=== PATIENT | female | born 1985 | race Hispanic/Latino ===

== ENCOUNTER 2019-07-30 05:38 | Inpatient (IN) | payer OTHER ==
[~2019-07-30] VITALS: Ht 162.6 cm; Wt 115.2 kg
[2019-07-30] MEDS ORDERED: EPHEDRINE SULFATE 50 MG/ML AMPULE IVP PRN (06:00)
[2019-07-30] MEDS ORDERED: OXYTOCIN 10 USP UNITS/ML 20 UNIT in LACTATED RINGERS 1000ML 1,000 ML IV SCH (06:00)
[2019-07-30] MEDS ORDERED: LACTATED RINGERS 500 ML 500 ML IV PRN (06:00)
[2019-07-30] MEDS ORDERED: ROPIVACAINE 0.2% 100ML VIAL 100 ML EP PRN (06:00)
[2019-07-30] MEDS ORDERED: NALOXONE HCL 0.4 MG/1 ML ML IV PRN (06:00)
[2019-07-30 06:30] LABS: APPEARANCE,URINE Cloudy (CLEAR); BILIRUBIN,URINE Negative (NEGATIVE); COLOR,URINE Yellow (YELLOW); GLUCOSE, URINE (UA) Negative (NEGATIVE); KETONES,URINE Negative (NEGATIVE); LEUKOCYTE ESTERASE ,URINE Large (NEGATIVE); NITRATE,URINE Negative (NEGATIVE); OCCULT BLOOD,URINE Negative (NEGATIVE); PROTEIN,URINE Negative (NEGATIVE)
[2019-07-30] MEDS ORDERED: OXYTOCIN-LR 20 UNITS/1000 ML 1,000 ML IV ONE ×2 (06:45→10:49)
[2019-07-30 06:46] LABS: HEMATOCRIT 35.1 % (36-48); MEAN CORPUSCULAR HEMOGLOBIN 28.7 pg (27.0-33.0); MEAN CORPUSCULAR HGB CONC 34.5 g/dL (32.0-36.0); MEAN CORPUSCULAR VOLUME 83.1 fL (79-99); NUCLEATED RED BLOOD CELLS 0.1 % (0.0-0.19); PLATELET COUNT (AUTO) 271 K/uL (130-400); RED BLOOD CELL COUNT(AUTO) 4.22 MIL/uL (4.00-5.50); RED CELL DISTRIBUTION WIDTH 14.6 % (11.0-15.5); WHITE BLOOD COUNT (AUTO) 8.3 K/uL (4.8-10.8)
[2019-07-30 06:49] VITALS: BP 125/63
[2019-07-30] MEDS ORDERED: METHY500 PO (06:51)
[2019-07-30] MEDS: LACTATED RINGERS 1000ML 1,000 ML IV PRN ×4 (06:53→23:03)
[2019-07-30 07:02] LABS: BACTERIA,URINE Moderate /HPF (None Seen); RBC,URINE 0-1 /HPF (0-1)
[2019-07-30 07:03] LABS: MUCUS,URINE Moderate LPF (None Seen)
[2019-07-30] MEDS ORDERED: LIDOCAINE 2%-EPI 1:200,000 20 ML VIAL IJ ONE (15:38)
[2019-07-30] MEDS ORDERED: LIDOCAINE HCL 1% 20 ML VIAL ONE (15:39)
[2019-07-30] MEDS: CLINDAMYCIN 600 MG/D5% WATER 50 ML IV SCH ×2 (18:24→23:52)
[2019-07-31] MEDS ORDERED: OXYTOCIN-LR 20 UNITS/1000 ML 1,000 ML IV ONE (04:47)
[2019-07-31] MEDS: CLINDAMYCIN 600 MG/D5% WATER 50 ML IV SCH (05:55)
[2019-07-31] MEDS ORDERED: FENTANYL CITRATE PF 50 MCG/1 ML 2ML VIAL ONE (07:43)
[2019-07-31 08:12] LABS: HEPATITIS Bs ANTIGEN SCREEN P Negative (Negative)
[2019-07-31] MEDS ORDERED: ACETAMINOPHEN 325 MG TAB PO PRN (10:15)
[2019-07-31] MEDS ORDERED: ACETAMINOPHEN-CODEINE 300/30MG TAB PO PRN (10:15)
[2019-07-31] MEDS ORDERED: BENZOCAINE/LANOLIN/ALOE VERA 60 ML AEROSOL TP PRN (10:15)
[2019-07-31] MEDS ORDERED: MEASLES/MUMPS/RUBELLA VACCINE, LIVE 0.5 ML/VIAL SQ PRN (10:15)
[2019-07-31] MEDS ORDERED: WITCH HAZEL 1 PAD TP PRN (10:15)
[2019-07-31] MEDS ORDERED: LANOLIN 30GM OINTMENT TP PRN (10:15)
[2019-07-31] MEDS ORDERED: DIPH,PERTUSS(ACELL),TET VAC/PF 0.5 ML VIAL IM PRN (10:15)
[2019-07-31] MEDS: OXYTOCIN-LR 20 UNITS/1000 ML 1,000 ML IV SCH (11:13)
--- NOTE | 2019-07-31 12:10 | NUR ---
PATIENT ARRIVED TO UNIT VIA WHEELCHAIR FROM LABOR AND DELIVERY. PATIENT ORIENTED TO ROOM. FUNDUS FIRM, BLEEDING IS SCANT. C/O CRAMPING TO LOWER ABDOMEN RATE 3/10. WILL COVER WITH PAIN MEDICATION.
[2019-07-31 12:15] VITALS: BP 122/72
[2019-07-31] MEDS: IBUPROFEN 600 MG TABLET PO PRN (12:27)
[2019-07-31] MEDS ORDERED: FLU VACC QS2019-20 36MOS UP/PF 60 MCG/0.5 ML ML IM ONE (16:30)
[2019-07-31 17:10] VITALS: BP 110/56
[2019-07-31 19:12] VITALS: BP 125/80
[2019-07-31] MEDS: DOCUSATE SODIUM 100 MG CAP PO SCH (21:00)
[2019-07-31 23:22] VITALS: BP 106/50
[2019-08-01 03:26] VITALS: BP 117/76
[2019-08-01] MEDS: IBUPROFEN 600 MG TABLET PO PRN (03:40)
[2019-08-01 07:59] VITALS: BP 122/76
[2019-08-01] MEDS: DOCUSATE SODIUM 100 MG CAP PO SCH (08:41)
[2019-08-01] MEDS: OXYTOCIN-LR 20 UNITS/1000 ML 1,000 ML IV SCH (10:30)
[2019-08-01 11:35] VITALS: BP 111/79
--- NOTE | 2019-08-01 13:40 | NUR ---
DISCHARGE PT STABLE, NO PAIN, NO COMPLAINTS; PT LEFT UNIT, VIA WHEELCHAIR, WITH BABY IN ARMS, ACCOMPANIED BY GLORIA HEBERT AND SPOUSE CARRYING ALL PERSONAL BELONGINGS AND INSTRUCTIONS; PT LEFT FACILITY IN PERSONAL VEHICLE
== END 2019-08-01 13:40 | disposition home or self-care (01) | DRG 807 ==
LOC: LDH 05:38 → WSH 07-31 12:10
PROVIDERS: ADMIT Obstetrics & Gynecology; ATTEND Obstetrics & Gynecology
PROC: 10907ZC Drainage of Amniotic Fluid, Therapeutic from Products of Conception, Via Natural or Artificial Opening (ICD-10-PCS; principal; 2019-07-31)
PROC: 10E0XZZ Delivery of Products of Conception, External Approach (ICD-10-PCS; 2019-07-31)
PROC: 3E033VJ Introduction of Other Hormone into Peripheral Vein, Percutaneous Approach (ICD-10-PCS; 2019-07-31)
PROC: 3E0R3BZ Introduction of Anesthetic Agent into Spinal Canal, Percutaneous Approach (ICD-10-PCS; 2019-07-31)
PROC: 00HU33Z Insertion of Infusion Device into Spinal Canal, Percutaneous Approach (ICD-10-PCS; 2019-07-31)
PROC: 3E02340 Introduction of Influenza Vaccine into Muscle, Percutaneous Approach (ICD-10-PCS; 2019-07-31)
PROC: 3E0234Z Introduction of Serum, Toxoid and Vaccine into Muscle, Percutaneous Approach (ICD-10-PCS; 2019-07-31)
PROC: 3E0134Z Introduction of Serum, Toxoid and Vaccine into Subcutaneous Tissue, Percutaneous Approach (ICD-10-PCS; 2019-07-31)
DX: O16.4 Unspecified maternal hypertension, complicating childbirth (principal); Z37.0 Single live birth; Z3A.37 37 weeks gestation of pregnancy; Z23 Encounter for immunization
CPT/HCPCS: 36415; 81001; 85027; 86592; 86850; 86900; 86901; 87340; 90715; A4314; G0008; G0378; J2590; J2795; J3010; J3490; J7120